=== PATIENT | female | born 1970 | race Caucasian/White ===

== ENCOUNTER → 2019-07-05 | Outpatient (CLI) | payer BC, OTHER ==
[2019-07-05 17:07] VITALS: BP 167/88; PULSE 84; TEMP 97.8; BMI 54.5
--- NOTE | 2019-08-08 13:13 | P.HPBAR ---
Bariatric H&P - History & Physicial H&P Date: 07/05/19 History & Physicial: Visit/CC: pt would like band removed Patient initial contact: Initial weight: 120.202 kg Initial weight in pounds: 265.00 Height: 5 ft 8.75 in Initial BMI: 39.4 Last weight: Current weight: 166.196 kg Current weight in pounds: 366.40 Current BMI: 54.5 [place] body weight (based on NIH guidelines): 65.204 kg Excess body weight loss: The patient is a 49 year-old F who presents for Bariatric Assessment. Patient presents today for removal of her LAP-BAND constipation. She wants her band removed. She's had GERD. Past Medical History Past Medical History: Diabetes Mellitus, Hypertension Additional Past Medical History / Comment(s): hx of anemia, type 2 DM, History of Any Multi-Drug Resistant Organisms: None Reported Past Surgical History: Bariatric Surgery, Tubal Ligation, Uterine Ablation Additional Past Surgical History / Comment(s): Hemorrhoidectomy * lap band placed 2008 (pt to be boarded for removal in July 2019) Past Anesthesia/Blood Transfusion Reactions: No Reported Reaction Additional Past Anesthesia/Blood Transfusion Reaction / Comm: No transfusions to date Smoking Status: Never smoker Past Alcohol Use History: None Reported Past Drug Use History: None Reported Surgical - Exam Vital Signs Temp Pulse BP 97.8 F 84 167/88 07/05/19 17:00 07/05/19 17:00 07/05/19 17:00 - General well developed, well nourished, no distress - Abdomen Abdomen: soft, non tender Bariatric Assessment & Plan Plan: Chronic GERD. Patient LAP-BAND will be explanted. Bariatric Checklist Checklist: Plan: Checklist: EGD: 1. Hiatal hernia: 2. H. Pylori: HgbA1c: Vitamin D: Smoking: Never smoker Primary care physician referral: Dr. Sheila Roa ([facility]) Psychiatry clearance: Cardiology clearance: Sleep study: Diet journal: VTE risk score: VTE risk level: Rehab needs at discharge:
== END | disposition home or self-care (01) ==
LOC: BARWHC3 13:43
PROVIDERS: ATTEND Surgery
DX: Z46.51 Encounter for fitting and adjustment of gastric lap band (principal); K59.00 Constipation, unspecified; K21.9 Gastro-esophageal reflux disease without esophagitis; Z98.84 Bariatric surgery status; Z98.51 Tubal ligation status; Z98.890 Other specified postprocedural states
CPT/HCPCS: 99211